=== PATIENT | male | born 1970 | race Two or more races ===

== ENCOUNTER 2021-01-18 10:17 | Emergency (ER) | payer OTHER ==
[~2021-01-18] VITALS: Ht 167.6 cm; Wt 77.1 kg
[2021-01-18] MEDS ORDERED: JENTADUETO 2.51 EACH PO (10:44)
[2021-01-18] MEDS ORDERED: GLIMEPIRIDE1 M1 PO (10:44)
[2021-01-18] MEDS ORDERED: CRESTOR5 MG PO (10:45)
== END 2021-01-18 13:46 | disposition home or self-care (01) ==
LOC: ER 10:17
DX: M25.512 Pain in left shoulder (principal); M50.90 Cervical disc disorder, unspecified, unspecified cervical region